=== PATIENT | female | born 2000 | race Caucasian/White ===

== ENCOUNTER → 2023-06-21 | Outpatient (REF) | payer OTHER | LOC: M LAB REF 16:35 | PROVIDERS: ATTEND Nurse Practitioner Family | DX: R30.0 Dysuria (principal) ==

== ENCOUNTER → 2024-01-29 | Outpatient (CLI) | payer OTHER ==
[2024-01-29 12:31] LABS: BASO % 0.3 % (0.0-1.0); EOS # 0.1 10^3/uL (0.0-0.5); EOS % 1.2 % (0.0-3.0); HEMATOCRIT 35.9 % (36.0-47.0); HEMOGLOBIN 12.3 g/dl (12.0-15.5); LYMPH # 1.9 10^3/uL (1.5-5.0); LYMPH % 16.7 % (24.0-44.0); MEAN CORPUSCULAR HEMOGLOBIN 30.8 pg (27.0-33.0); MEAN CORPUSCULAR HGB CONC 34.3 g/dl (32.0-36.5); MONO # 0.8 10^3/uL (0.0-0.8); MONO % 7.2 % (2.0-8.0); NEUTROPHILS # 8.6 10^3/uL (1.5-8.5); NEUTROPHILS % 74.3 % (36.0-66.0); PLATELET COUNT, AUTOMATED 283 10^3/uL (150-450); RED BLOOD COUNT 3.99 10^6/uL (4.00-5.40); WHITE BLOOD COUNT 11.6 10^3/uL (4.0-10.0)
[2024-01-29 12:55] LABS: ALKALINE PHOSPHATASE 46 U/L (35-104); ALT/SGPT < 9 U/L (7.0-40); AST/SGOT < 8 U/L (<34); BILIRUBIN,TOTAL 0.7 MG/DL (0.3-1.2); BLOOD UREA NITROGEN 8 MG/DL (9-23); CALCIUM LEVEL 9.5 MG/DL (8.5-10.1); CARBON DIOXIDE LEVEL 26 MMOL/L (20-31); CHLORIDE LEVEL 106 MMOL/L (98-107); CREATININE FOR GFR 0.58 MG/DL (0.55-1.30); GLOMERULAR FILTRATION RATE > 60.0 (>60); GLUCOSE, FASTING 74 MG/DL (60-100); POTASSIUM SERUM 4.1 MMOL/L (3.5-5.1); SODIUM LEVEL 141 MMOL/L (136-145); TOTAL PROTEIN 6.9 G/DL (5.7-8.2)
[2024-01-29 14:58] LABS: Trichomonas vaginalis (AMP) NOT DETECTED (NEGATIVE)
[2024-01-29 15:21] LABS: GC DNA AMPLIFICATION NEGATIVE (NEGATIVE)
== END ==
LOC: M WUC 10:48
PROVIDERS: ATTEND Physician Assistant
DX: R30.0 Dysuria (principal)

== ENCOUNTER → 2024-06-13 | Outpatient (CLI) | payer OTHER ==
[2024-06-13 18:22] LABS: HEMATOCRIT 36.5 % (36.0-47.0); HEMOGLOBIN 12.5 g/dl (12.0-15.5); MEAN CORPUSCULAR HEMOGLOBIN 29.8 pg (27.0-33.0); MEAN CORPUSCULAR HGB CONC 34.2 g/dl (32.0-36.5); MEAN CORPUSCULAR VOLUME 87.1 fl (80.0-96.0); PLATELET COUNT, AUTOMATED 315 10^3/uL (150-450); RED BLOOD COUNT 4.19 10^6/uL (4.00-5.40); WHITE BLOOD COUNT 11.9 10^3/uL (4.0-10.0)
[2024-06-13 19:14] LABS: HIV 1&2 SCREEN NEGATIVE (NEGATIVE)
[2024-06-13 19:22] LABS: HEPATITIS C VIRUS ABY INDEX 0.03 INDEX (<0.8)
[2024-06-14 11:52] LABS: Trichomonas vaginalis (AMP) NOT DETECTED (NEGATIVE)
[2024-06-14 12:17] LABS: GC DNA AMPLIFICATION NEGATIVE (NEGATIVE)
== END ==
LOC: M PLALAB 14:53
PROVIDERS: ATTEND Specialist
DX: Z34.01 Encounter for supervision of normal first pregnancy, first trimester (principal)

== ENCOUNTER → 2024-10-08 | Outpatient (CLI) | payer OTHER ==
[~2024-10-08] MED LIST: PRENTAB9 PO
[2024-10-08 13:57] LABS: PLATELET COUNT, AUTOMATED 250 10^3/uL (150-450)
[2024-10-08 14:36] LABS: GLUCOSE CHALLENGE TEST 1 HOUR 78 MG/DL (LESS THAN 140)
[2024-10-08 14:50] LABS: Trichomonas vaginalis (AMP) NOT DETECTED (NEGATIVE)
[2024-10-08 15:11] LABS: HIV 1&2 SCREEN NEGATIVE (NEGATIVE)
[2024-10-08 15:14] LABS: GC DNA AMPLIFICATION NEGATIVE (NEGATIVE)
[2024-10-08 15:19] LABS: HEPATITIS C VIRUS ABY INDEX < 0.02 INDEX (<0.8)
== END ==
LOC: M PLALAB 08:51
PROVIDERS: ATTEND Obstetrics & Gynecology
DX: Z34.92 Encounter for supervision of normal pregnancy, unspecified, second trimester (principal)

== ENCOUNTER → 2024-10-31 | Outpatient (CLI) | payer OTHER ==
[2024-10-31 17:23] LABS: PLATELET COUNT, AUTOMATED 250 10^3/uL (150-450)
[2024-10-31 17:48] LABS: ALT/SGPT 15 U/L (7.0-40); AST/SGOT 16 U/L (<34); CALCIUM LEVEL 8.8 MG/DL (8.5-10.1); CARBON DIOXIDE LEVEL 25 MMOL/L (20-31); CHLORIDE LEVEL 104 MMOL/L (98-107); CREATININE FOR GFR 0.45 MG/DL (0.55-1.30); GLOMERULAR FILTRATION RATE > 90.0 (>60); POTASSIUM SERUM 4.2 MMOL/L (3.5-5.1); SODIUM LEVEL 140 MMOL/L (136-145)
== END ==
LOC: M PLALAB 16:10
PROVIDERS: ATTEND Advanced Practice Midwife
DX: O26.893 Other specified pregnancy related conditions, third trimester (principal); R10.12 Left upper quadrant pain; Z3A.00 Weeks of gestation of pregnancy not specified

== ENCOUNTER → 2024-11-15 | Outpatient (CLI) | payer OTHER | LOC: M WHC 10:32 | PROVIDERS: ATTEND Advanced Practice Midwife | DX: O26.893 Other specified pregnancy related conditions, third trimester (principal); R10.12 Left upper quadrant pain ==

== ENCOUNTER → 2024-11-27 | Outpatient (CLI) | payer OTHER ==
[2024-11-27 13:45] LABS: ALT/SGPT 12 U/L (7.0-40); AST/SGOT 13 U/L (<34)
== END ==
LOC: M PLALAB 09:47
PROVIDERS: ATTEND Specialist
DX: O26.643 Intrahepatic cholestasis of pregnancy, third trimester (principal); Z3A.00 Weeks of gestation of pregnancy not specified

== ENCOUNTER → 2024-12-09 | Outpatient (REF) | payer OTHER | LOC: M SFHCWAGY 12:46 | PROVIDERS: ATTEND Obstetrics & Gynecology | DX: Z34.83 Encounter for supervision of other normal pregnancy, third trimester (principal) ==

== ENCOUNTER 2024-12-30 12:54 | Inpatient (IN) | payer OTHER ==
[2024-12-30] VITALS (33 sets, daily range): BP systolic 102–168; BP diastolic 56–95
[~2024-12-30] VITALS: Ht 154.9 cm; Wt 65.3 kg
[2024-12-30] MEDS ORDERED: HOME MED LIST COMPLETE! XX SCH (13:05)
[2024-12-30] MEDS ORDERED: OXYTOCIN INJ 10UNITS/ML 1ML VIAL IM PRN (13:40)
[2024-12-30] MEDS: LACTATED RINGER'S 1000 ML IV STA (13:40)
[2024-12-30] MEDS ORDERED: OXYTOCIN DRIP 30 UNITS in IV 1 EA IV PRN (13:40)
[2024-12-30] MEDS ORDERED: TRANEXAMIC ACID INJection 1,000 MG in NS 100 ML IV PRN (13:40)
[2024-12-30] MEDS ORDERED: LIDOCAINE 1% MDV 20 ML VIAL INFIL PRN (13:40)
[2024-12-30] MEDS ORDERED: CARBOPROST TROMETHAMINE 250 MCG/ML AMP IM PRN (13:40)
[2024-12-30] MEDS ORDERED: METHYLERGONOVINE MALEATE 0.2 MG/ML 1 ML VIAL IM PRN (13:40)
[2024-12-30 14:14] LABS: PLATELET COUNT, AUTOMATED 160 10^3/uL (150-450)
[2024-12-30 15:08] LABS: HIV 1&2 SCREEN NEGATIVE (NEGATIVE)
[2024-12-30 15:16] LABS: HEPATITIS C VIRUS ABY INDEX < 0.02 INDEX (<0.8)
[2024-12-30] MEDS: LR 1,000 ML IV SCH (16:04)
[2024-12-30] MEDS: OXYTOCIN DRIP 30 UNITS in IV 1 EA IV SCH (16:04)
[2024-12-30] MEDS ORDERED: FENTANYL/ROPIVACAINE/NACL BAG 100 ML EPIDURAL SCH (17:55)
[2024-12-30] MEDS ORDERED: ONDANSETRON 4MG/2ML VIAL IV PRN (17:55)
[2024-12-30] MEDS ORDERED: diphenhydrAMINE 50 MG/ML VIAL IV PRN (17:55)
[2024-12-30] MEDS ORDERED: NALOXONE INJ 0.4 MG/1 ML VIAL IV PRN (17:55)
[2024-12-30] MEDS ORDERED: EPIDURAL/PCA KEYS XX PRN (17:55)
[2024-12-30] MEDS ORDERED: LR 500 ML IV PRN (17:55)
[2024-12-30] MEDS ORDERED: MOM 30 ML SUSPENSION UDC PO PRN (22:45)
[2024-12-30] MEDS ORDERED: RHOGAM 300MCG (1500IU) INJ IM SCH (22:45)
[2024-12-30] MEDS ORDERED: ANUSOL HC CREAM 30 GM TOP PRN (22:45)
[2024-12-30] MEDS ORDERED: ACETAMINOPHEN 325 MG TAB PO PRN (22:45)
[2024-12-31] VITALS (10 sets, daily range): BP systolic 107–132; BP diastolic 61–85; O2SAT 96–97
[2024-12-31] MEDS: IBUPROFEN 800 MG TAB PO PRN (03:46)
[2024-12-31] MEDS: DIBUCAINE 1% OINTMENT 30 GM TOP PRN (05:14)
[2024-12-31] MEDS: ACETAMINOPHEN 500 MG TAB PO PRN (06:14)
[2024-12-31] MEDS: PRENATAL VITAMINS CHEWABLE TABLET PO SCH (08:23)
[2024-12-31] MEDS: MEASLES,MUMPS,RUBELLA VACCINE INJ (MMR-II) SC.IMMUN ONE (10:30)
[2024-12-31] MEDS: DOCUSATE SODIUM 100 MG CAPSULE PO PRN (11:56)
[2025-01-01 05:56] VITALS: BP 104/67; O2SAT 95
[2025-01-01] MEDS: IBUPROFEN 600 MG TAB PO PRN (08:12)
[2025-01-01 17:57] VITALS: BP 110/56; O2SAT 95
[2025-01-02 05:48] VITALS: BP 106/68; O2SAT 96
[2025-01-02] MEDS ORDERED: PRENTAB9 PO (09:51)
== END 2025-01-02 11:50 | disposition home or self-care (01) | DRG 807 ==
LOC: M LDO 12:54 → M LDI 13:06 → M OBS 12-31 03:20
PROVIDERS: ADMIT Advanced Practice Midwife; ATTEND Advanced Practice Midwife
PROC: 10E0XZZ Delivery of Products of Conception, External Approach (ICD-10-PCS; principal; 2024-12-31)
PROC: 0HQ9XZZ Repair Perineum Skin, External Approach (ICD-10-PCS; 2024-12-31)
DX: O70.0 First degree perineal laceration during delivery (principal); Z37.0 Single live birth; Z3A.39 39 weeks gestation of pregnancy